=== PATIENT | male | born 1990 | race African-American/Black ===

== ENCOUNTER 2022-10-25 13:26 | Emergency (ER) | payer MEDICAID, OTHER ==
[~2022-10-25] VITALS: Ht 180.3 cm; Wt 70.0 kg
[2022-10-25 14:59] LABS: CHLORIDE 108 mEq/L (98-107)
[2022-10-25 15:07] LABS: ETHANOL BLOOD < 10 mg/dL
[2022-10-25 15:11] LABS: BASOPHILS % 0.5 % (0.0-2.0); EOSINOPHILS % 1.1 % (0.0-5.0); HEMATOCRIT. 45.1 % (42.0-52.0); MEAN CORPUSCULAR VOLUME 90.5 fL (80.0-94.0); MEAN PLATELET VOLUME 8.2 fl (7.4-10.4); MONOCYTES % 5.8 % (2.0-8.0); NEUTROPHILS % 63.6 % (40.0-76.0); PLATELET 237 x1000/uL (130-400); RED BLOOD CELL COUNT 4.98 mill/uL (4.7-6.1); RED CELL DISTRIBUTION WIDTH 14.1 % (11.6-14.6)
[2022-10-25] MEDS ORDERED: KEPP500 MT (15:20)
[2022-10-25 17:14] VITALS: BP 132/84
== END 2022-10-25 17:18 | disposition home or self-care (01) ==
LOC: ER 13:26
DX: R56.9 Unspecified convulsions (principal)
CPT/HCPCS: 36415; 80053; 80165; 80185; 80320; 85025; 99283; G0480